=== PATIENT | male | born 1945 | race Caucasian/White ===

== ENCOUNTER 2019-02-17 13:16 | Emergency (ER) | payer MEDICARE, OTHER, SELFPAY ==
[2019-02-17 13:39] VITALS: BP 189/87; PULSE 68; RESP 18; TEMP 36.5; O2SAT 100; BMI 31.7
--- NOTE | 2019-02-17 13:42 | PC.NURSE ---
not paying attentions, fell, face plant, denies loc, denies neck pain, obtained nasal superficial abrasions, edema, denies visual changes no respiratory distress, able to converse appropriately, moving all extremities.
--- NOTE | 2019-02-17 13:43 | DI.CT.S_ITS ---
PROCEDURE: CT FACIAL BONES WO CON INDICATIONS: fall with facial injury TECHNIQUE: Noncontrast 2.5 mm thick axial images acquired from the mandible through the frontal sinuses, with coronal and sagittal reformatting. For radiation dose reduction, the following was used: automated exposure control, adjustment of mA and/or kV according to patient size. COMPARISON: [facility], CT, CT HEAD/BRAIN WO CON, 02/17/2019, 13:51. FINDINGS: Image quality: Thickness. Bones: There is a minimally depressed fracture evident involving the right nasal bone without significant comminution. The bony nasal septum is deviated towards the patient's right. Orbital riley are intact. Sinus riley show no fracture or deformity. Visualized portions of the mandible demonstrate no fractures or subluxation. Zygomatic arches are intact. Pterygoid plates are intact. Visualized portions of the skull base and auditory canals are intact. Severe degenerative changes are noted involving the included portions of the upper cervical spine. Sinuses: Paranasal sinuses are aerated, without fluid levels, mucosal thickening, or mucoceles. Mastoid air cells are aerated. Soft tissues: Soft tissue swelling about the nose is present. No masses, or fluid collections. No enlarged lymph nodes. No soft tissue lacerations or debris. IMPRESSION: 1. Minimally depressed right nasal bone fracture. 2. No additional facial bone fractures. 3. Prominent degenerative changes of the upper cervical spine. Dictated by: César Johnson M.D. on 02/17/2019 at 14:30 Approved by: César Johnson M.D. on 02/17/2019 at 14:33
--- NOTE | 2019-02-17 13:43 | DI.CT.S_ITS ---
PROCEDURE: CT HEAD/BRAIN WO CON INDICATIONS: fall with facial injury TECHNIQUE: Noncontrast 4.5 mm thick angled axial sections acquired from the foramen magnum to the vertex, with coronal and sagittal reformats. For radiation dose reduction, the following was used: automated exposure control, adjustment of mA and/or kV according to patient size. COMPARISON: [facility], CT, CT FACIAL BONES WO CON, 02/17/2019, 13:51. FINDINGS: Image quality: Diagnostic. CSF spaces: Basal cisterns are patent. No extra-axial fluid collections. Ventricles are mildly prominent. Brain: No midline shift. No intracranial masses or hemorrhage. Melvin-white matter interface is normal. Confluent areas of low attenuation are seen within the periventricular white matter of the supratentorial brain. Skull and face: Calvarium and visualized facial bones are intact, without suspicious lesions. Sinuses: Visualized sinuses and mastoids are clear. IMPRESSION: 1. No acute intracranial hemorrhage. 2. Chronic small vessel ischemic changes. 2. Ventricular prominence is nonspecific. Clinical correlation to exclude normal pressure hydrocephalus is recommended. Dictated by: César Johnson M.D. on 02/17/2019 at 14:15 Approved by: César Johnson M.D. on 02/17/2019 at 14:17
[2019-02-17] MEDS: TET,DIPH,PERTUSS(ACELL),VAC/PF 0.5 ML SYRINGE IM (13:48)
--- NOTE | 2019-02-17 13:59 | ED.HEATRA ---
HPI - Head Injury General Chief complaint: Head Injury Stated complaint: Fell on face Time Seen by Provider: 02/17/19 13:18 Source: patient Mode of arrival: Ambulatory Limitations: no limitations History of Present Illness HPI Narrative: 73-year-old male nonsmoker with history of hypertension presents with his for evaluation of a ground level fall in which he tripped over an object on the ground and fell forward striking his nose. He denies loss of consciousness, nausea, vomiting. He has full recall of the event and states it was purely a clutzy moment. Aspirin but no other anticoagulation. His chief complaint is of a nose injury and he was bleeding initially but that has since stopped. He is able to breathe through both nostrils. He denies any jaw pain and has no complaints of neck, back or extremities. MD Complaint: head injury Onset (ago): hour(s) Mechanism of Injury: fall Place: home Loss of Consciousness: no Location of injury: frontal Severity: mild Quality: aching Radiation: none Other Injuries: none Context: on aspirin Associated symptoms: other Related Data Home Medications Medication Instructions Recorded Confirmed FOLIC ACID/VIT A/VIT B1/VIT 1 tab PO QDAY #0 10/22/10 11/11/18 (#MULTIVITAMIN) aspirin 81 mg PO QDAY #0 10/22/16 11/11/18 glucosamine-chondritin Cosamin DS See Rx Instructions PO BID 12/19/17 11/11/18 naproxen sodium 220 mg tablet 220 mg PO BID PRN 12/19/17 11/11/18 Previous Rx's Medication Instructions Recorded diclofenac sodium 1 % topical gel 2 gram TOP QID #100 gram 01/05/18 cetirizine 10 mg capsule 10 mg PO DAILY #20 cap 11/11/18 fluticasone propionate 50 2 spray NASAL DAILY #9.9 gram 11/11/18 mcg/actuation nasal spray,suspension pseudoephedrine-guaifenesin ER 60 1 tab PO Q12H PRN #14 tab 11/11/18 mg-600 mg tablet,extend release 12hr azithromycin 250 mg tablet See Rx Instructions PO .COMPLEX #6 11/15/18 tab azithromycin 250 mg tablet See Rx Instructions PO .COMPLEX #6 11/16/18 tab Allergies Allergy/AdvReac Type Severity Reaction Status Date / Time erythromycin base Allergy Intermediate stomach Verified 02/17/19 13:39 [ERYTHROMYCIN BASE] upset, vomitting. Review of Systems Constitutional Constitutional: Denies chills, Denies fatigue, Denies fever(s), Denies frequent falls, Denies lethargy and Denies weakness Eyes Eyes: Denies change in vision, Denies eye discharge, Denies irritation and Denies loss of vision ENT Ears, Nose, Mouth, and Throat: Denies change in voice, Denies dizziness, Reports nasal trauma, Denies neck pain, Denies sore throat and Denies throat swelling Cardiovascular Cardiovascular: Denies chest pain, Denies irregular heart rhythm, Denies lightheadedness, Denies palpitations, Denies dyspnea, Denies dyspnea on exertion and Denies orthopnea Respiratory Respiratory: Denies cough, Denies dyspnea, Denies dyspnea on exertion and Denies wheezing Gastrointestinal Gastrointestinal: Denies abdominal pain, Denies change in bowel habits, Denies diarrhea, Denies nausea and Denies vomiting Genitourinary Genitourinary: Denies hematuria, Denies flank pain, Denies urinary incontinence and Denies urinary urgency Musculoskeletal Musculoskeletal: Denies back pain, Denies muscle weakness, Denies neck pain, Denies numbness and Denies tingling Integumentary/Breasts Skin/Breast: Denies pruritus, Denies erythema, Denies rash and Denies wounds Neurologic Neurologic: Denies behavioral changes, Denies confusion, Denies dizziness, Denies frequent falls, Denies loss of vision, Denies numbness, Denies tingling and Denies weakness Psychiatric Psychiatric: Denies anxiety, Denies behavioral changes, Denies confusion, Denies depression, Denies homicidal ideation and Denies suicidal ideation Endocrine Endocrine: Denies fatigue, Denies flushing and Denies palpitations Hematologic/Lymphatic Hematologic/Lymphatic: Denies easy bruising Allergic/Immunologic Allergic/Immunologic: Denies urticaria, Denies throat swelling and Denies wheezing Patient History Medical History Cataracts, bilateral (Acute) DVT of lower extremity (deep venous thrombosis) (Resolved 11/2012) Hearing loss (Chronic) Hemangioma (Resolved) Hepatitis (Resolved) Hx of fracture of nose (Resolved) Knee pain (Resolved) Osteoarthritis (Chronic) Shoulder pain (Resolved) Surgical History History of excision of pilonidal cyst (Resolved) History of knee replacement (Resolved 04/2015) History of right-sided carotid endarterectomy (Resolved 04/2017) Hx of excision of hemangioma (Resolved 2010) Hx of hammer toe correction (Resolved) Hx of rotator cuff surgery (Resolved 2008) Hx of spinal fusion (Resolved) Hx of tonsillectomy (Resolved) Social History Smoking Status: Never smoker alcohol intake: current (very occasionally) alcohol intake frequency: holidays/special occasions only Substance Use Type: does not use Exam Narrative Exam Narrative: GENERAL: [73] year old patient appears stated age. Well-nourished, well-developed patient, in mild distress. GCS 15 HEAD: Abrasions to forehead and nose, no evidence or suspicion of depressed skull fracture EYES: Pupils equal round and reactive. Extraocular motions intact. No scleral icterus. No injection or drainage. ENT: Abrasion on bridge of nose, no laceration to repair. Fresh try clots in bilateral nares, no active bleeding, no nasal septal hematoma. Patient able to move air through both nares. Throat without erythema, tonsillar hypertrophy or exudate. Airway patent. NECK: Trachea midline. Non tender CARDIOVASCULAR: Regular rate and rhythm without murmurs, gallops, or rubs. RESPIRATORY: Clear to auscultation. Breath sounds equal bilaterally. No wheezes, rales, or rhonchi. GASTROINTESTINAL: Abdomen soft, non-tender, nondistended. EXTREMITIES: No edema or joint tenderness. BACK: Nontender without deformity or crepitance. No flank tenderness. NEURO: AOx3. SKIN: No rash or erythema of visible areas Initial Vital Signs Initial Vital Signs: Vital Signs Temperature 97.7 F 02/17/19 13:39 Pulse Rate 68 02/17/19 13:39 Respiratory Rate 18 02/17/19 13:39 Blood Pressure 189/87 H 02/17/19 13:39 Pulse Oximetry 100 02/17/19 13:39 Course Orders Ordered: ED Orders 02/17/19 13:43 CT facial bones wo con Stat CT head/brain wo con Stat Discontinued Medications Diphtheria/Tetanus/Acell Pertussis (Adacel) 0.5 ml IM .ONCE ONE Stop: 02/17/19 13:48 Last Admin: 02/17/19 13:48 Dose: 0.5 ml Documented by: MEISENB Tetanus/Diphtheria Toxoids (Td) 0.5 ml IM .ONCE ONE Stop: 02/17/19 13:40 Last Admin: 02/17/19 13:54 Dose: Not Given Documented by: MEISENB Vital Signs Vital signs: Vital Signs - 8 hr 02/17/19 13:39 Temperature 97.7 F Pulse Rate 68 Respiratory Rate 18 Blood Pressure 189/87 H Pulse Oximetry 100 MDM - Head Injury Imaging Data Facial Bones: Radiologist's impression: Chart Viewer Diagnostics DATE TYPE STATUS AUTHOR Hx 02/17/19 13:43 César Johnson 02/17/19 13:43 César Johnson Zan Camarena , M0 1945 [facility] ER, Main ED 175.26cm 97.522kg BMI: 31.7kg/m? Head Injury Search Chart No Data to Display NF - Not included in interaction checking stomach upset, vomitting. ONSET 06/26/15 06/26/15 06/26/15 06/26/15 06/26/15 06/26/15 12/16/15 12/16/15 06/08/17 06/08/17 06/08/17 Today 13:39 Migue[address] 1945 [place] [address] CT Scan Report Signed Patient: Zan Camarena [facility]#: [id number] : 5Acct:[id number] Age/Sex: 73 / MDate of Service: 02/17/19 Loc: ED Accession Number: [id number] Procedure: CT facial bones wo con Ordering Provider: Emilio Serrato D.O. PROCEDURE: CT FACIAL BONES WO CON INDICATIONS: fall with facial injury TECHNIQUE: Noncontrast 2.5 mm thick axial images acquired from the mandible through the frontal sinuses, with coronal and sagittal reformatting. For radiation dose reduction, the following was used: automated exposure control, adjustment of mA and/or kV according to patient size. COMPARISON: [facility], CT, CT HEAD/BRAIN WO CON, 02/17/2019, 13:51. FINDINGS: Image quality: Thickness. Bones: There is a minimally depressed fracture evident involving the right nasal bone without significant comminution. The bony nasal septum is deviated towards the patient's right. Orbital riley are intact. Sinus riley show no fracture or deformity. Visualized portions of the mandible demonstrate no fractures or subluxation. Zygomatic arches are intact. Pterygoid plates are intact. Visualized portions of the skull base and auditory canals are intact. Severe degenerative changes are noted involving the included portions of the upper cervical spine. Sinuses: Paranasal sinuses are aerated, without fluid levels, mucosal thickening, or mucoceles. Mastoid air cells are aerated. Soft tissues: Soft tissue swelling about the nose is present. No masses, or fluid collections. No enlarged lymph nodes. No soft tissue lacerations or debris. IMPRESSION: 1. Minimally depressed right nasal bone fracture. 2. No additional facial bone fractures. 3. Prominent degenerative changes of the upper cervical spine. Dictated by: César Johnson M.D. on 02/17/2019 at 14:30 Approved by: César Johnson M.D. on 02/17/2019 at 14:33 Discharge Plan Departure Patient Disposition: Home Clinical Impression: Contusion of forehead, Closed fracture nasal bone Discharge Date/Time: 02/17/19 14:33 Instructions: DI for Contusion, DI for Nose Fracture Activity Restrictions/Additional Instructions: *You have been diagnosed with [mechanical fall with nasal contusion and facial abrasions] *What to do: *Take medications as directed *Follow up with your primary care provider in 2-3 days, call for an appointment. Let them know you were seen in the Emergency Department and that we ask that you be seen in follow up *Return to ER if you should have any new, worsening or concerning symptoms Prescriptions: No Action diclofenac sodium [Voltaren] 1 % gel 2 gram TOP QID Qty: 100 RF: 1 fluticasone propionate [Flonase Allergy Relief] 50 mcg/actuation spray,suspension 2 spray NASAL DAILY Qty: 9.9 RF: 0 Zyrtec 10 mg capsule 10 mg PO DAILY Qty: 20 RF: 0 pseudoephedrine-guaifenesin [Mucinex D] 60-600 mg tablet extended release 12 hr 1 tab PO Q12H PRN (Reason: cold symptoms) Qty: 14 RF: 0 glucosamine-chondritin Cosamin DS See Rx Instructions PO BID RF: 0 naproxen sodium [Aleve] 220 mg tablet 220 mg PO BID PRNRF: 0 FOLIC ACID/VIT A/VIT B1/VIT (#MULTIVITAMIN) 1 tab PO QDAY Qty: 0 RF: 0 aspirin 81 MG tablet,chewable 81 mg PO QDAY Qty: 0 RF: 0 azithromycin 250 mg tablet See Rx Instructions PO .COMPLEX Qty: 6 RF: 1 azithromycin 250 mg tablet See Rx Instructions PO .COMPLEX Qty: 6 RF: 0 Referrals: Giles Jiménez MD [Primary Care Provider] - Wander Sheikh MD [Physician] -
== END 2019-02-17 14:33 | disposition home or self-care (01) ==
PROVIDERS: Emergency Provider Emergency Medicine; PCP Student in an Organized Health Care Education/Training Program
DX: S02.2XXA Fracture of nasal bones, initial encounter for closed fracture (principal); S00.83XA Contusion of other part of head, initial encounter; S09.93XA Unspecified injury of face, initial encounter; I10 Essential (primary) hypertension; W01.0XXA Fall on same level from slipping, tripping and stumbling without subsequent striking against object, initial encounter; Z23 Encounter for immunization; Z79.82 Long term (current) use of aspirin
CPT/HCPCS: 70450; 70486; 90471; 99282; 99284; 90715

== ENCOUNTER → 2020-06-30 09:06 | Outpatient (CLI) | payer MEDICARE, OTHER, SELFPAY ==
[2020-06-30 09:43] LABS: Add Manual Diff / Slide Review NO; Basophils Absolute Auto 100 /uL (0-100); Eosinophils Absolute Auto 300 /uL (0-450); Eosinophils Percent Auto 5.7 % (2-4); Hematocrit 42.7 % (41-53); Hemoglobin 14.2 g/dL (13.5-17.5); Lymphocytes Absolute Auto 1700 /uL (1100-4500); Lymphocytes Percent Auto 29.1 % (25-40); Mean Corpuscular HGB Conc 33.2 % (30-36); Mean Corpuscular Volume 93.2 fL (80-100); Monocytes Absolute Auto 700 /uL (0-900); Monocytes Percent Auto 12.4 % (3-14); Neutrophils Absolute Auto 3000 /uL (1500-7000); Neutrophils Percent Auto 51.8 % (50-75); Platelet Count 211 X10^3/uL (150-400); Red Blood Cell Count 4.58 X10^6/uL (4.5-5.9); Red Cell Distribution Width 12.9 % (11.6-14.8); White Blood Cell Count 5.9 X10^3/uL (4.5-11.0)
[2020-06-30 10:19] LABS: Alanine Aminotransferase 14 IU/L (<50); Albumin Globulin Ratio 1.4 (1.0-2.8); Alkaline Phosphatase 75 U/L (38-126); Aspartate Aminotransferase 30 IU/L (17-59); BUN Creatinine Ratio 21.4 (6-22); Bilirubin Total 0.5 mg/dL (0.2-1.3); Blood Urea Nitrogen 22 mg/dL (9-20); Calcium 9.5 mg/dL (8.4-10.2); Carbon Dioxide 28 mmol/L (22-32); Chloride 104 mmol/L (98-107); Cholesterol 134 mg/dL (140-199); Estimated Glomerular Filt Rate > 60.0 mL/min (>60); Globulin 2.9 g/dL (1.7-4.1); Glucose 96 mg/dL (80-110); HDL Cholesterol 74 mg/dL (40-60); HEMOLYSIS < 15 (0-50); LDL Cholesterol Calculated 50 mg/dL (<100); Potassium 4.3 mmol/L (3.4-5.1); Sodium 137 mmol/L (137-145); Total Protein 6.9 g/dL (6.3-8.2); Triglycerides 52 mg/dL (35-150)
== END ==
PROVIDERS: PCP Family Medicine; Referring Provider Family Medicine; Visit Provider Family Medicine
DX: I65.21 Occlusion and stenosis of right carotid artery (principal); Z79.899 Other long term (current) drug therapy
CPT/HCPCS: 36415; 80053; 80061; 85025

== ENCOUNTER 2021-02-17 22:16 | Emergency (ER) | payer MEDICARE, OTHER, SELFPAY ==
[2021-02-17 22:18] VITALS: BP 118/86; PULSE 98; RESP 31; TEMP 37; O2SAT 98; BMI 30.8
--- NOTE | 2021-02-17 22:23 | DI.RAD.S_ITS ---
PROCEDURE: XR CHEST 1V INDICATIONS: chest pain TECHNIQUE: One view of the chest was acquired. COMPARISON: [facility], , CHEST 2 VIEW, 02/04/2016, 14:58. FINDINGS: Surgical changes and devices: Left shoulder arthroplasty hardware can be seen. Lungs and pleura: Lungs are clear. No pleural effusions or pneumothorax. Mediastinum: Mediastinal contours appear normal. Heart size is normal. Bones and chest wall: No suspicious bony lesions. S-shaped scoliotic curvature is seen. Age-appropriate bony degenerative changes are seen. Overlying soft tissues appear unremarkable. IMPRESSION: No acute cardiopulmonary process is seen. Postoperative and degenerative changes are seen. Dictated by: Og Rowan M.D. on 02/17/2021 at 21:34 Approved by: Og Rowan M.D. on 02/17/2021 at 21:35
== END 2021-02-18 01:07 | disposition left against medical advice (07) ==
PROVIDERS: Emergency Provider Emergency Medicine; PCP Family Medicine
DX: R06.00 Dyspnea, unspecified (principal)
CPT/HCPCS: 71045; 99281

== ENCOUNTER 2023-01-01 23:02 | Emergency (ER) | payer MEDICARE, OTHER, SELFPAY ==
[2023-01-01 23:18] VITALS: BP 166/83; PULSE 81; RESP 18; TEMP 37.2; O2SAT 95; BMI 29.7
[2023-01-01] MEDS: TET,DIPH,PERTUSS(ACELL),VAC/PF 0.5 ML SYRINGE IM (23:44)
[2023-01-01] MEDS: LIDOCAINE 1% (PF) 5 ML INJ (23:45)
--- NOTE | 2023-01-01 23:49 | ED.HEATRA ---
HPI - Head Injury General Chief complaint: Head Injury Stated complaint: fell and tore part of ear flap Time Seen by Provider: 01/01/23 23:20 Source: patient and family Mode of arrival: Ambulatory History of Present Illness HPI Narrative: Patient 77-year-old male presents today with left ear injury. He reports he was getting up to take the dogs out the living room is sunken in he stood up on the 1st step turned around looks further dog and then fell cutting his left ear. He has an avulsion flap like laceration on the very top he looks part of his ear. He denies dizziness lightheadedness or shortness of breath. He reports that he had COVID last March since then he has had some ongoing issues he sees cardiology and pulmonology he actually sees them both this week he reports having multiple testing done. Tonight he denies any other symptoms. He reports that this happens sometimes. He is not on antiplatelet or anticoagulation. Related Data Home Medications Medication Instructions Recorded Confirmed FOLIC ACID/VIT A/VIT B1/VIT 1 tab PO QDAY ##0 10/22/10 11/11/18 (#MULTIVITAMIN) aspirin 81 mg chewable tablet 81 mg PO QDAY ##0 10/22/16 11/11/18 glucosamine-chondritin Cosamin DS See Rx Instructions PO BID 12/19/17 11/11/18 naproxen sodium 220 mg tablet 220 mg PO BID PRN 12/19/17 11/11/18 (Aleve) Previous Rx's Medication Instructions Recorded diclofenac sodium 1 % topical gel 2 gram topical QID #100 grams 01/05/18 (Voltaren) cetirizine 10 mg capsule (Zyrtec) 10 mg PO DAILY #20 caps 11/11/18 fluticasone propionate 50 2 spray intranasal DAILY #9.9 grams 11/11/18 mcg/actuation nasal spray,suspension (Flonase Allergy Relief) pseudoephedrine-guaifenesin ER 60 1 tab PO Q12H PRN cold symptoms 11/11/18 mg-600 mg tablet,extend release #14 tabs 12hr (Mucinex D) azithromycin 250 mg tablet See Rx Instructions PO .COMPLEX #6 11/15/18 tabs azithromycin 250 mg tablet See Rx Instructions PO .COMPLEX #6 11/16/18 tabs amoxicillin 500 mg capsule 500 mg PO BID #14 caps 01/02/23 Allergies Allergy/AdvReac Type Severity Reaction Status Date / Time erythromycin base Allergy Intermediate stomach Verified 02/17/19 13:39 [ERYTHROMYCIN BASE] upset, vomitting. Review of Systems Review of Systems ROS Unobtainable: All systems reviewed & are unremarkable except as noted in HPI and below Patient History Medical History (Updated 01/02/23 @ 01:11 by Sade Espinal DO) Cataracts, bilateral DVT of lower extremity (deep venous thrombosis) (11/2012) Hearing loss Hemangioma Hepatitis Hx of fracture of nose Knee pain Osteoarthritis Shoulder pain Surgical History History of excision of pilonidal cyst History of knee replacement (04/2015) History of right-sided carotid endarterectomy (04/2017) Hx of excision of hemangioma (2010) Hx of hammer toe correction Hx of rotator cuff surgery (2008) Hx of spinal fusion Hx of tonsillectomy Social History Smoking Status: Never smoker alcohol intake: current (very occasionally) Smoking Status: Never smoker alcohol intake frequency: holidays/special occasions only Substance Use Type: does not use Exam Initial Vital Signs Initial Vital Signs: Vital Signs Temperature 99.0 F 01/01/23 23:18 Pulse Rate 81 01/01/23 23:18 Respiratory Rate 18 01/01/23 23:18 Blood Pressure 166/83 H 01/01/23 23:18 Pulse Oximetry 95 01/01/23 23:18 Oxygen Delivery Method Room Air 01/01/23 23:18 GENERAL: Well-appearing, well-nourished and in no acute distress. CARDIOVASCULAR: peripheral pulses in tact, cap refill <2 sec RESPIRATORY: No respiratory distress, speaks in full sentences without difficulty EXTREMITIES: Normal range of motion, no clubbing or edema. Neurovascularly intact NEUROLOGICAL: Cranial nerves II through XII grossly intact. Normal gait and speech. SKIN: Warm, dry, no petechiae, no rashes or lesions. [facility] Ear Left: 1. 2 cm x 1 cm flap-like laceration without cartilage involvement Procedures Laceration Repair Laceration 1: Site: other (ear) Side (If applicable): left Size (cm): 2 Description: flap Depth: simple, single layer Local Anesthetic: lidocaine 1% Amount of anesthesia used (mL): 10 Pre-repair: wound explored, irrigated extensively and deep structures intact Skin layer closed with: nylon Skin layer suture size: 6-0 Number of sutures: 15 Technique: simple, interrupted Course Orders Ordered: Discontinued Medications Diphtheria/Tetanus/Acell Pertussis (Diph,Pertuss(Acell),Tet Vac/Pf 0.5 Ml Syringe) 0.5 ml IM .ONCE ONE Stop: 01/01/23 23:36 Last Admin: 01/01/23 23:39 Dose: Not Given Documented By: TASHA Diphtheria/Tetanus/Acell Pertussis (Tet,Diph,Pertuss(Acell),Vac/Pf 0.5 Ml Syringe) 0.5 ml IM .ONCE ONE Stop: 01/01/23 23:42 Last Admin: 01/01/23 23:44 Dose: 0.5 ml Documented By: SB Lidocaine HCl (Lidocaine 1% (Pf) 5 Ml) 5 ml INJ NOW ONE Stop: 01/01/23 23:34 Last Admin: 01/01/23 23:45 Dose: 5 ml Documented By: SB Vital Signs Vital signs: Vital Signs - 8 hr 01/01/23 23:18 01/02/23 01:28 Temperature 99.0 F Pulse Rate 81 88 Respiratory Rate 18 16 Blood Pressure 166/83 H 186/88 H Pulse Oximetry 95 95 Oxygen Delivery Method Room Air Room Air MDM - Head Injury MDM Narrative Medical decision making narrative: Patient presents to do isolated left ear injury laceration. It is an avulsion laceration the tip of the helix. It is hanging on very very small piece of skin. No cartilage damage or laceration appreciated. Discussed with patient probably a poor prognosis. He understood. Pressure bandage and Xeroform placed. Talked with patient and about continued pressure as best and as possible he is also put on antibiotic help prevent infection Sounds as though patient had some sort of mechanical fall. Turned around and just fell. No significant loss conscious not not having any neurologic deficits. At this time not on anticoagulation I see no need for imaging or further workup. He sees cardiology and pulmonology this week. It is possible he has had long COVID symptoms for awhile symptoms any significantly worse today. 23:[address] Natarajan consulted in regards to laceration. Agreed with trying to attach flap and close outpatient follow-up. Discharge Plan Departure Patient Disposition: Home Clinical Impression: Laceration of ear, external, left, complicated Qualifiers: Encounter type: initial encounter Qualified Code(s): S01.312A - Laceration without foreign body of left ear, initial encounter Instructions: DI for Laceration Repair -- Complex Activity Restrictions/Additional Instructions: *You have been diagnosed with complex left ear laceration of helix *What to do: You will be sure to keep dressing on as best as possible try to keep pressure on it. May clean with soap and water may shower and bathe. *Continue to take medications as directed Amoxicillin 500 mg twice a day for 7 days--> [facility] Tylenol 650 mg every 4-6 hours if needed for [id number] pain *Follow up with your primary care provider in 2-3 days or call [phone] Sheikh or Dr. Natarajan thing Tuesday you will need close follow-up *Return to ER if you should have increasing redness drainage fever or any new, worsening or concerning symptoms Prescriptions: New amoxicillin 500 mg capsule 500 mg PO BID Qty: 14 0RF No Action diclofenac sodium [Voltaren] 1 % gel 2 gram TOP QID Qty: 100 1RF fluticasone propionate [Flonase Allergy Relief] 50 mcg/actuation spray,suspension 2 spray NASAL DAILY Qty: 9.9 0RF Rx Instructions: administer into each nostril Zyrtec 10 mg capsule 10 mg PO DAILY Qty: 20 0RF pseudoephedrine-guaifenesin [Mucinex D] 60-600 mg tablet extended release 12 hr 1 tab PO Q12H PRN (Reason: cold symptoms) Qty: 14 0RF glucosamine-chondritin Cosamin DS See Rx Instructions PO BID Patient Comments: 500mg Glucosamin-400mg Chondriotin PO BID; Rx Instructions: 500mg Glucosamin-400mg Chondriotin PO BID; naproxen sodium [Aleve] 220 mg tablet 220 mg PO BID PRN FOLIC ACID/VIT A/VIT B1/VIT (#MULTIVITAMIN) 1 tab PO QDAY Qty: 0 aspirin 81 MG tablet,chewable 81 mg PO QDAY Qty: 0 azithromycin 250 mg tablet See Rx Instructions PO .COMPLEX Qty: 6 1RF Rx Instructions: take 500 mg today (day 1), then 250 mg for 4 days (days 2-5) PO azithromycin 250 mg tablet See Rx Instructions PO .COMPLEX Qty: 6 0RF Rx Instructions: take 500 mg today (day 1), then 250 mg for 4 days (days 2-5) Referrals: Goyo Natarajan MD [Physician] - Wander Sheikh MD [Physician] - Stand Alone Forms: Patient Portal/API
[2023-01-02 01:28] VITALS: BP 186/88; PULSE 88; RESP 16; O2SAT 95
== END 2023-01-02 01:29 | disposition home or self-care (01) ==
PROVIDERS: Emergency Provider Emergency Medicine
DX: S01.312A Laceration without foreign body of left ear, initial encounter (principal); X58.XXXA Exposure to other specified factors, initial encounter; Z23 Encounter for immunization; Z86.16 Personal history of COVID-19
CPT/HCPCS: 12001; 90471; 99283; 90715

== ENCOUNTER 2023-03-24 14:15 | Outpatient (RCR) | payer MEDICARE, OTHER, SELFPAY | END 2023-03-24 16:15 | LOC: PUL 14:15 | PROVIDERS: Referring Provider Internal Medicine; Visit Provider Internal Medicine | DX: J44.9 Chronic obstructive pulmonary disease, unspecified (principal) | CPT/HCPCS: 94625; 94626 ==

== ENCOUNTER → 2023-04-05 08:52 | Outpatient (CLI) | payer MEDICARE, OTHER, SELFPAY ==
[2023-04-05 10:27] LABS: BUN Creatinine Ratio 17.5 (6-22); Blood Urea Nitrogen 22 mg/dL (9-20); Calcium 9.7 mg/dL (8.4-10.2); Carbon Dioxide 29 mmol/L (22-32); Chloride 101 mmol/L (98-107); Estimated Glomerular Filt Rate 58 mL/min (>60); Glucose 93 mg/dL (80-110); HEMOLYSIS < 15 (0-50); Potassium 4.5 mmol/L (3.4-5.1); Sodium 136 mmol/L (137-145)
== END ==
PROVIDERS: PCP Family Medicine; Referring Provider Internal Medicine Cardiovascular Disease; Visit Provider Internal Medicine Cardiovascular Disease
DX: I47.10 Supraventricular tachycardia, unspecified (principal); I10 Essential (primary) hypertension
CPT/HCPCS: 36415; 80048

== ENCOUNTER → 2023-05-02 11:42 | Outpatient (CLI) | payer MEDICARE, OTHER, SELFPAY ==
--- NOTE | 2023-05-02 11:44 | DI.RAD.S_ITS ---
PROCEDURE: XR CHEST 2V INDICATIONS: cough TECHNIQUE: 2 views of the chest were acquired. COMPARISON: None. FINDINGS: Surgical changes and devices: None. Lungs and pleura: Left lower lobe infiltrate suspicious for pneumonia. Biapical scarring. No pleural effusions or pneumothorax. Mediastinum: Mediastinal contours are normal. Heart size is normal. Bones and chest wall: Left shoulder arthroplasty. No suspicious bony abnormalities. Soft tissues appear unremarkable. IMPRESSION: Suspect left lower lobe pneumonia. Dictated by: Janelle Hobson M.D. on 05/02/2023 at 16:52 Approved by: Janelle Hobson M.D. on 05/02/2023 at 16:53
== END ==
PROVIDERS: PCP Family Medicine; Referring Provider Nurse Practitioner Family; Visit Provider Nurse Practitioner Family
DX: R05.9 Cough, unspecified (principal)
CPT/HCPCS: 71046

== ENCOUNTER 2023-09-30 17:50 | Emergency (ER) | payer MEDICARE, OTHER, SELFPAY ==
[2023-09-30 18:04] VITALS: BP 109/57; PULSE 96; RESP 16; TEMP 36.8; O2SAT 97; BMI 29.2
--- NOTE | 2023-10-01 00:46 | ED.RECABL ---
HPI - Recheck/Abnormal Lab/Rx General Chief Complaint: Recheck/Abnormal Lab/Rx Stated Complaint: abnormal labs Source: patient Mode of arrival: Family Vehicle History of Present Illness HPI narrative: Patient left without seeing provider Related Data Home Medications Medication Instructions Recorded Confirmed FOLIC ACID/VIT A/VIT B1/VIT 1 tab PO QDAY ##0 10/22/10 05/02/23 (#MULTIVITAMIN) aspirin 81 mg chewable tablet 81 mg PO QDAY ##0 10/22/16 05/02/23 glucosamine-chondritin Cosamin DS See Rx Instructions PO BID 12/19/17 05/02/23 naproxen sodium 220 mg tablet 220 mg PO BID PRN 12/19/17 05/02/23 (Aleve) albuterol sulfate 2.5 mg/3 mL mg inhalation 05/02/23 05/02/23 (0.083 %) solution for nebulization apixaban 5 mg tablet (Eliquis) 5 mg PO BID 05/02/23 05/02/23 inhalational spacing device #1 ea 05/02/23 05/02/23 (AeroChamber Z-Stat Plus-Flow Signal) meloxicam 7.5 mg tablet 7.5 mg PO BID 05/02/23 05/02/23 Previous Rx's Medication Instructions Recorded diclofenac sodium 1 % topical gel 2 gram topical QID #100 grams 01/05/18 (Voltaren) cetirizine 10 mg capsule (Zyrtec) 10 mg PO DAILY #20 caps 11/11/18 fluticasone propionate 50 2 spray intranasal DAILY #9.9 grams 11/11/18 mcg/actuation nasal spray,suspension (Flonase Allergy Relief) pseudoephedrine-guaifenesin ER 60 1 tab PO Q12H PRN cold symptoms 11/11/18 mg-600 mg tablet,extend release #14 tabs 12hr (Mucinex D) benzonatate 100 mg capsule 100 mg PO BID PRN cough #20 caps 05/02/23 Allergies Allergy/AdvReac Type Severity Reaction Status Date / Time erythromycin base Allergy Intermediate stomach Verified 05/02/23 11:26 [ERYTHROMYCIN BASE] upset, vomitting. Patient History Medical History (Updated 09/30/23 @ 20:44 by Merry Sewell RN) Osteoarthritis DVT of lower extremity (deep venous thrombosis) (11/2012) Hx of fracture of nose Hemangioma Hepatitis Cataracts, bilateral Hearing loss Knee pain Shoulder pain Surgical History History of knee replacement (04/2015) Hx of excision of hemangioma (2010) Hx of spinal fusion Hx of hammer toe correction History of excision of pilonidal cyst Hx of tonsillectomy Hx of rotator cuff surgery (2008) History of right-sided carotid endarterectomy (04/2017) Social History Smoking Status: Never smoker alcohol intake: current (very occasionally) Smoking Status: Never smoker alcohol intake frequency: holidays/special occasions only Substance Use Type: does not use Exam Initial Vital Signs Initial Vital Signs: Vital Signs Temperature 98.2 F 09/30/23 18:04 Pulse Rate 96 H 09/30/23 18:04 Respiratory Rate 16 09/30/23 18:04 Blood Pressure 109/57 L 09/30/23 18:04 Pulse Oximetry 97 09/30/23 18:04 Oxygen Delivery Method Room Air 09/30/23 18:04 Course Vital Signs Vital signs: Vital Signs - 8 hr 09/30/23 18:04 Temperature 98.2 F Pulse Rate 96 H Respiratory Rate 16 Blood Pressure 109/57 L Pulse Oximetry 97 Oxygen Delivery Method Room Air Discharge Plan Departure Patient Disposition: Left Without Being Seen Clinical Impression: Patient left before evaluation by physician Prescriptions: No Action diclofenac sodium [Voltaren] 1 % gel 2 gram TOP QID Qty: 100 1RF fluticasone propionate [Flonase Allergy Relief] 50 mcg/actuation spray,suspension 2 spray NASAL DAILY Qty: 9.9 0RF Rx Instructions: administer into each nostril Zyrtec 10 mg capsule 10 mg PO DAILY Qty: 20 0RF pseudoephedrine-guaifenesin [Mucinex D] 60-600 mg tablet extended release 12 hr 1 tab PO Q12H PRN (Reason: cold symptoms) Qty: 14 0RF Eliquis 5 mg tablet 5 mg PO BID (DME) AeroChamber Z-Stat Plus-Flw Sg Spacer See Rx Instructions .ROUTE .MEDSUPPLY Qty: 1 Patient Comments: [NO ORIGINAL SIG] Rx Instructions: As directed albuterol sulfate 2.5 mg /3 mL (0.083 %) solution for nebulization inhalation meloxicam 7.5 mg tablet 7.5 mg PO BID benzonatate 100 mg capsule 100 mg PO BID PRN (Reason: cough) Qty: 20 0RF glucosamine-chondritin Cosamin DS See Rx Instructions PO BID Patient Comments: 500mg Glucosamin-400mg Chondriotin PO BID; Rx Instructions: 500mg Glucosamin-400mg Chondriotin PO BID; naproxen sodium [Aleve] 220 mg tablet 220 mg PO BID PRN FOLIC ACID/VIT A/VIT B1/VIT (#MULTIVITAMIN) 1 tab PO QDAY Qty: 0 aspirin 81 MG tablet,chewable 81 mg PO QDAY Qty: 0
== END 2023-09-30 19:15 | disposition left against medical advice (07) ==
PROVIDERS: Emergency Provider Emergency Medicine; PCP Family Medicine
DX: J40 Bronchitis, not specified as acute or chronic (principal)
CPT/HCPCS: 99281

== ENCOUNTER → 2023-10-26 11:06 | Outpatient (CLI) | payer MEDICARE, OTHER, SELFPAY ==
[2023-10-26 12:13] LABS: Hematocrit 33.2 % (41-53); Hemoglobin 11.1 g/dL (13.5-17.5); Mean Corpuscular HGB Conc 33.4 % (30-36); Mean Corpuscular Hemoglobin 30.6 PG (26-34); Mean Corpuscular Volume 91.5 fL (80-100); Platelet Count 255 X10^3/uL (150-400); Red Blood Cell Count 3.63 X10^6/uL (4.5-5.9)
[2023-10-26 12:40] LABS: Alanine Aminotransferase 10 IU/L (<50); Albumin 3.6 g/dL (3.5-5.0); Albumin Globulin Ratio 1.2 (1.0-2.8); Alkaline Phosphatase 86 U/L (38-126); Aspartate Aminotransferase 21 IU/L (17-59); BUN Creatinine Ratio 11.7 (6-22); Bilirubin Total 0.6 mg/dL (0.2-1.3); Blood Urea Nitrogen 18 mg/dL (9-20); Calcium 8.8 mg/dL (8.4-10.2); Carbon Dioxide 24 mmol/L (22-32); Chloride 105 mmol/L (98-107); Estimated Glomerular Filt Rate 46 mL/min (>60); Globulin 3.1 g/dL (1.7-4.1); Glucose 96 mg/dL (80-110); HEMOLYSIS < 15 (0-50); Potassium 4.9 mmol/L (3.4-5.1); Sodium 136 mmol/L (137-145); Total Protein 6.7 g/dL (6.3-8.2)
[2023-10-26 12:45] LABS: NT-proBNP (BNP-Adult 18+) 2180 pg/mL (<450)
[2023-10-26 13:08] LABS: Thyroid Stimulating Hormone 1.87 uIU/mL (0.47-4.68)
== END ==
PROVIDERS: PCP Family Medicine; Referring Provider Nurse Practitioner; Visit Provider Nurse Practitioner
DX: I48.19 Other persistent atrial fibrillation (principal); R06.09 Other forms of dyspnea
CPT/HCPCS: 36415; 80053; 83880; 84443; 85027

== ENCOUNTER 2024-04-25 14:15 | Outpatient (RCR) | payer MEDICARE, OTHER, SELFPAY | END 2024-04-25 16:44 | LOC: CAR 14:15 | PROVIDERS: PCP Family Medicine; Referring Provider Internal Medicine Cardiovascular Disease; Visit Provider Internal Medicine Cardiovascular Disease | DX: I21.4 Non-ST elevation (NSTEMI) myocardial infarction (principal); R06.09 Other forms of dyspnea | CPT/HCPCS: 93798 ==

== ENCOUNTER 2024-05-24 13:47 | Emergency (ER) | payer MEDICARE, OTHER, SELFPAY | END 2024-05-24 14:08 | disposition left against medical advice (07) | PROVIDERS: Emergency Provider Student in an Organized Health Care Education/Training Program; PCP Family Medicine ==

== ENCOUNTER 2024-08-23 14:15 | Outpatient (RCR) | payer MEDICARE, OTHER, SELFPAY | END 2024-08-23 16:15 | LOC: PUL 14:15 | PROVIDERS: PCP Family Medicine; Referring Provider Internal Medicine Critical Care Medicine; Visit Provider Internal Medicine Critical Care Medicine | DX: J44.9 Chronic obstructive pulmonary disease, unspecified (principal) | CPT/HCPCS: 94626 ==